=== PATIENT | female | born 1955 | race Caucasian/White ===

== ENCOUNTER → 2017-05-18 | Emergency (ER) | payer OTHER ==
[~2017-05-18] VITALS: Ht 160 cm; Wt 83.9 kg
[~2017-05-18] MED LIST: CIPRO500 MG PO; COLACE100 MG PO; NABUMETONE750 MG PO; NORVASC2.5 M1; PERCOCET 5/3251 TAB PO
== END | disposition home or self-care (01) ==
LOC: ER 19:13
DX: K29.70 Gastritis, unspecified, without bleeding (principal); R17 Unspecified jaundice; K76.9 Liver disease, unspecified